=== PATIENT | female | born 2000 | race Hispanic/Latino ===

== ENCOUNTER 2022-10-24 07:30 | Inpatient (IN) | payer MEDICAID, OTHER, SELFPAY ==
[2022-10-24 08:13] VITALS: BMI 26.8
[2022-10-24] MEDS ORDERED: hydrALAZINE 20 MG/ML VIAL SLOW IVP PRN ×2 (08:41→11:53)
[2022-10-24] MEDS ORDERED: Ibuprofen 800 MG TAB PO PRN (11:53)
[2022-10-24] MEDS ORDERED: Diphenoxylate HCl/Atropine Tablet PO PRN ×2 (11:53)
[2022-10-24] MEDS ORDERED: Carboprost 250 MCG/ML AMP IM PRN (11:53)
[2022-10-24] MEDS ORDERED: Docusate 100 MG CAP PO PRN (11:53)
[2022-10-24] MEDS ORDERED: Promethazine HCl 25 MG/ML VIAL IM PRN (11:53)
[2022-10-24] MEDS ORDERED: Misoprostol 200 MCG TAB PR PRN (11:53)
[2022-10-24] MEDS ORDERED: Acetaminophen 500 MG TAB PO PRN (11:53)
[2022-10-24] MEDS ORDERED: Ondansetron PF 4 MG/2 ML Vial IVP PRN (11:53)
[2022-10-24] MEDS ORDERED: Lidocaine 1% (PF) 30 ML VIAL SC PRN (11:53)
[2022-10-24] MEDS ORDERED: Methylergonovine 0.2 MG/ML VIAL IM PRN (11:53)
[2022-10-24] MEDS ORDERED: NS w/ Oxytocin 30 units 500 ML IV SCH ×3 (12:00)
[2022-10-24] MEDS ORDERED: Lactated Ringer's 1,000 ML IV SCH (12:00)
[2022-10-24 13:15] LABS: Hemoglobin 11.1 g/dL (12.0-15.5); Mean Corpuscular HGB CONC 33.2 g/dL (32.0-36.0); Mean Corpuscular Volume 87.2 fl (81.6-98.3); Mean Platelet Volume 10.8 fl (7.4-10.4); Platelet Count 192 10x3/uL (150-450); Red Blood Cell (RBC) Count 3.83 10x6/uL (3.90-5.03); White Blood Cell (WBC) Count 8.3 10x3/uL (3.5-10.5)
[2022-10-24 13:49] LABS: HBSAg Index 0.16 S/CO (0-0.99); Hep B Surf Ag - L&D Non-Reactive S/CO (NonReactive)
[2022-10-24 13:50] LABS: Syphilis Antibody Nonreactive (Nonreactive); Syphilis Antibody Index 0.06 S/CO (<1.00 Non-Reactive)
[2022-10-24] MEDS: Morphine 4 MG/ML VIAL SLOW IVP PRN (19:16)
[2022-10-24] MEDS ORDERED: Bupivacaine 0.25% HCL 30 ML VIAL ONE (19:32)
[2022-10-25] MEDS: Morphine 4 MG/ML VIAL SLOW IVP PRN ×2 (02:23→08:05)
[2022-10-25] MEDS ORDERED: Naloxone HCl 0.4 mg/ml Vial IVP PRN ×2 (08:25)
[2022-10-25] MEDS ORDERED: Moisturizing Cream (Eucerin) 113 GM JAR TOP PRN (08:25)
[2022-10-25] MEDS ORDERED: Ondansetron PF 4 MG/2 ML Vial IVP PRN ×2 (08:25→19:36)
[2022-10-25] MEDS ORDERED: ePHEDrine Sulfate 50 MG/10 ML VIAL SLOW IVP PRN (08:25)
[2022-10-25] MEDS ORDERED: diphenhydrAMINE 50 MG/ML VIAL IVP PRN (08:25)
[2022-10-25] MEDS ORDERED: Lactated Ringer's 500 ML IV PRN (08:25)
[2022-10-25] MEDS ORDERED: Acetaminophen 325 MG TAB PO PRN (08:25)
[2022-10-25] MEDS ORDERED: Promethazine HCl 25 MG/ML VIAL IM PRN ×2 (08:25→19:36)
[2022-10-25] MEDS ORDERED: Communication Order-Pharmacy FS SCH (08:30)
[2022-10-25] MEDS ORDERED: fentaNYL 2 mcg/Ropivacaine 0.2% Epidural 100 ML CADD EPIDURAL SCH (08:30)
[2022-10-25] MEDS ORDERED: fentaNYL/Ropivacaine Epidural 100 ML ONE (09:14)
[2022-10-25] MEDS ORDERED: Misoprostol 200 MCG TAB ONE (14:25)
[2022-10-25] MEDS ORDERED: Sodium Chloride 0.9% 100 ML ONE (15:14)
[2022-10-25] MEDS ORDERED: Methylergonovine 0.2 MG/ML VIAL ONE (15:14)
[2022-10-25] MEDS ORDERED: Ampicillin 2 GM VIAL ONE (15:14)
[2022-10-25] MEDS ORDERED: Ibuprofen 800 MG TAB PO SCH (15:15)
[2022-10-25] MEDS ORDERED: Gentamicin 320 MG, Admixture Fee 1 EACH in Sodium Chloride 0.9% 100 ML IVPB SCH (15:30)
[2022-10-25] MEDS ORDERED: Gentamicin 270 MG, Admixture Fee 1 EACH in Sodium Chloride 0.9% 100 ML IVPB SCH (15:30)
[2022-10-25] MEDS ORDERED: Tranexamic Acid 1,000 MG/10 ML VIAL ONE ×2 (16:26→16:36)
[2022-10-25] MEDS ORDERED: Carboprost 250 MCG/ML AMP ONE (16:26)
[2022-10-25 17:12] LABS: INR-International Normal Ratio 1.1; Prothrombin Time 12.1 sec (9.5-12.1)
[2022-10-25] MEDS ORDERED: Diphenoxylate HCl/Atropine Tablet PO PRN (17:12)
[2022-10-25 17:15] LABS: Platelet Count 99 10x3/uL (150-450)
[2022-10-25] MEDS: Gentamicin 270 MG, Admixture Fee 1 EACH in Sodium Chloride 0.9% 100 ML IVPB SCH (18:00)
[2022-10-25 18:12] LABS: Fibrinogen 189 mg/dL (220-504)
[2022-10-25 18:28] LABS: D-Dimer Test Greater than 35.20 mg/L FEU (0.19-0.50)
[2022-10-25] MEDS ORDERED: Boostrix 0.5 ML (Tdap) VIAL (>/=7 yrs of age) IM ONE (19:36)
[2022-10-25] MEDS ORDERED: Misoprostol 200 MCG TAB VAG PRN (19:36)
[2022-10-25] MEDS ORDERED: hydrALAZINE 20 MG/ML VIAL SLOW IVP PRN (19:36)
[2022-10-25] MEDS ORDERED: Bisacodyl 10 MG SUPP PR PRN (19:36)
[2022-10-25] MEDS ORDERED: Methylergonovine 0.2 MG/ML VIAL IM PRN (19:36)
[2022-10-25] MEDS ORDERED: Milk Of Magnesia 30 ML UDCUP PO PRN (19:36)
[2022-10-25] MEDS ORDERED: Benzocaine-Menthol 82.5 ML CAN TOP PRN (19:36)
[2022-10-25] MEDS ORDERED: NS w/ Oxytocin 30 units 500 ML IV SCH (19:36)
[2022-10-25] MEDS: Ampicillin 2 GM in Sodium Chloride 0.9% 100 ML IVPB SCH ×2 (19:59→23:32)
[2022-10-25] MEDS: Docusate 100 MG CAP PO SCH (23:32)
[2022-10-25] MEDS: Ibuprofen 800 MG TAB PO SCH (23:32)
[2022-10-26 03:57] LABS: Hemoglobin 6.8 g/dL (12.0-15.5); Mean Corpuscular HGB CONC 33.3 g/dL (32.0-36.0); Mean Corpuscular Hemoglobin 29.3 pg (27.0-33.0); Mean Corpuscular Volume 87.9 fl (81.6-98.3); Mean Platelet Volume 10.2 fl (7.4-10.4); Platelet Count 122 10x3/uL (150-450); RBC Distribution Width 14.2 % (11.5-14.5); Red Blood Cell (RBC) Count 2.32 10x6/uL (3.90-5.03); White Blood Cell (WBC) Count 16.4 10x3/uL (3.5-10.5)
[2022-10-26] MEDS: Ibuprofen 800 MG TAB PO SCH ×3 (07:04→21:09)
[2022-10-26] MEDS ORDERED: HYDROcodone/Acetaminophen 5/325 mg Tablet PO PRN (07:29)
[2022-10-26] MEDS: Docusate 100 MG CAP PO SCH ×2 (08:13→21:09)
[2022-10-26] MEDS: Ferrous Sulfate 325 MG TAB PO SCH ×2 (08:13→16:53)
[2022-10-26] MEDS: Prenatal Vitamin 1 TAB PO SCH (08:13)
[2022-10-26] MEDS: Gentamicin 270 MG, Admixture Fee 1 EACH in Sodium Chloride 0.9% 100 ML IVPB SCH (18:49)
[2022-10-27] MEDS: Ibuprofen 800 MG TAB PO SCH ×2 (05:12→13:37)
[2022-10-27 08:11] VITALS: TEMP 97.5
[2022-10-27] MEDS: Ferrous Sulfate 325 MG TAB PO SCH ×2 (08:19→17:19)
[2022-10-27] MEDS: Prenatal Vitamin 1 TAB PO SCH (08:19)
[2022-10-27] MEDS: Docusate 100 MG CAP PO SCH (08:19)
[2022-10-27] MEDS: HYDROcodone/Acetaminophen 5/325 mg Tablet PO PRN ×2 (10:01→17:21)
[2022-10-27 11:37] VITALS: BP 136/73
== END 2022-10-27 19:10 | disposition home or self-care (01) | DRG 806 ==
LOC: CSHLD/OP 07:30 → CSHLD 11:53 → CSHPP 10-25 19:30
PROVIDERS: ADMIT Family Medicine; ATTEND Family Medicine
PROC: 10E0XZZ Delivery of Products of Conception, External Approach (ICD-10-PCS; principal; 2022-10-25)
PROC: 30233N1 Transfusion of Nonautologous Red Blood Cells into Peripheral Vein, Percutaneous Approach (ICD-10-PCS; 2022-10-26)
PROC: 6A550Z2 Pheresis of Platelets, Single (ICD-10-PCS; 2022-10-26)
DX: O48.0 Post-term pregnancy (principal); O72.1 Other immediate postpartum hemorrhage; Z37.0 Single live birth; Z3A.40 40 weeks gestation of pregnancy
CPT/HCPCS: 36415; 36430; 51702; 85027; 85049; 85300; 85362; 85379; 85384; 85610; 85730; 86780; 86850; 86900; 86901; 87340; 99285; J0290; J1580; J2210; J2270; J2405; J2590; J3490; P9016; P9035; S0020